=== PATIENT | female | born 1985 | race Native Hawaiian/Other Pacific Islander ===

== ENCOUNTER 2019-10-14 08:16 | Emergency (ER) | payer BC ==
[~2019-10-14] VITALS: Ht 167.6 cm; Wt 127.0 kg
[2019-10-14 08:44] VITALS: TEMP 99.5
[2019-10-14 10:01] VITALS: BP 136/87
== END 2019-10-14 10:08 | disposition home or self-care (01) ==
LOC: ED 08:16
PROC: 2W3QX1Z Immobilization of Right Lower Leg using Splint (ICD-10-PCS; principal; 2019-10-14)
DX: S93.401A Sprain of unspecified ligament of right ankle, initial encounter (principal); W19.XXXA Unspecified fall, initial encounter
CPT/HCPCS: 96372; 99283; J1885

== ENCOUNTER 2020-04-22 11:09 | Outpatient (CLI) | payer BC, OTHER | END 2020-04-22 23:14 | disposition home or self-care (01) | LOC: LAB 11:09 | DX: U07.1 COVID-19 (principal); R05 Cough; R09.81 Nasal congestion; R50.9 Fever, unspecified; Z20.828 Contact with and (suspected) exposure to other viral communicable diseases | CPT/HCPCS: 87635; G2023; U0003 ==